=== PATIENT | female | born 1955 | race American Indian/Alaskan Native ===

== ENCOUNTER 2018-08-09 07:43 | Day surgery (SDC) | payer MEDICARE, OTHER ==
[~2018-08-09] VITALS: Ht 162.6 cm; Wt 85.3 kg
[~2018-08-09 07:43] MED LIST: ALBU90OI INH; ASPI325 PO; ATEN25 PO; BENZ100A PO; BUSP5 PO; CHLO25 PO; CHOL10002 PO; CYCL10 PO; DIPATR PO; HYDCHL12.5 PO; HYOS.125 SL; KETO10 PO; LISI20 PO; LISI5 PO; MULTI VITAMIN1 EACH PO; PARO20 PO; PRODEXEL PO; PROM25 PO; Prednisone20 MG PO; SERT100 PO; TIZA4 PO; Zanaflex2 M1 PO
--- NOTE | 2018-08-09 08:30 | NUR ---
PT ADMITTED TO [facility]. AGREES WITH PLANNED PROCEDURE. MEDS, ALLERGIES AND HX REVIEWED. LUNG SOUNDS CLEAR.
--- NOTE | 2018-08-09 08:55 | NUR ---
08/09/18 0855 Kaye Marinelli PATIENT DETERMINED TO BE ASA APPROPRIATE FOR PROPOFOL SEDATION PRIOR TO START OF PROCEDURE BY DR. FOWLER. 3-LEAD EKG REVIEWED WITH PHYSICIAN PRIOR TO START OF PROCEDURE. PATIENT CONFIRMS NPO STATUS AND AGREES WITH SCHEDULED PROCEDURE. History, Chart, Medications and Allergies reviewed before start of procedure. MONITOR INTACT WITH CONTINUOUS PULSE OXIMETRY AND INTERMITTENT BP. O2 VIA N/C INTACT THROUGHOUT SEDATION/PROCEDURE, 3L NC.
--- NOTE | 2018-08-09 09:39 | NUR ---
Discharge instructions reviewed with patient. Patient verbalizes understanding. Copy given to patient to take home. Discharged via wheelchair to private car for ride home. WILL CALL RX TO [facility]
== END 2018-08-09 22:38 | disposition home or self-care (01) ==
LOC: ORSCMMR 07:43 → ORD 08:30 → ORSCMMR 08:30
PROVIDERS: Internal Medicine Gastroenterology
PROC: 0DB58ZX Excision of Esophagus, Via Natural or Artificial Opening Endoscopic, Diagnostic (ICD-10-PCS; principal; 2018-08-09 08:30)
PROC: 0DB68ZX Excision of Stomach, Via Natural or Artificial Opening Endoscopic, Diagnostic (ICD-10-PCS; principal; 2018-08-09 08:30)
PROC: 0DB48ZX Excision of Esophagogastric Junction, Via Natural or Artificial Opening Endoscopic, Diagnostic (ICD-10-PCS; principal; 2018-08-09 08:30)
PROC: 0D758ZZ Dilation of Esophagus, Via Natural or Artificial Opening Endoscopic (ICD-10-PCS; principal; 2018-08-09 08:30)
DX: R13.14 Dysphagia, pharyngoesophageal phase (principal); K25.9 Gastric ulcer, unspecified as acute or chronic, without hemorrhage or perforation; K22.2 Esophageal obstruction; K44.9 Diaphragmatic hernia without obstruction or gangrene; F41.9 Anxiety disorder, unspecified; K21.0 Gastro-esophageal reflux disease with esophagitis; I10 Essential (primary) hypertension; Z87.891 Personal history of nicotine dependence; Z79.899 Other long term (current) drug therapy
CPT/HCPCS: 88305; 88312; 88342; C1726; J7120

== ENCOUNTER → 2018-11-30 | Outpatient (CLI) | payer MEDICARE, OTHER ==
[2018-11-30 14:16] LABS: Microalb/Creat Ratio UR, Rand Unable to Calculate mg/g (0.000-30.000); Microalbumin, Random Urine <5.000 mg/L (0.000-20.000)
== END ==
LOC: LAB 12:54 → LAB SHORT 12:54
PROVIDERS: Family Medicine
DX: E11.9 Type 2 diabetes mellitus without complications (principal)
CPT/HCPCS: 82043; 82570

== ENCOUNTER 2020-06-25 11:49 | Emergency (ER) | payer MEDICARE ==
[~2020-06-25] VITALS: Ht 162.6 cm; Wt 90.3 kg
[~2020-06-25 11:49] MED LIST changes: +OMEP20ER PO
== END 2020-06-25 12:22 | disposition home or self-care (01) ==
LOC: ER 11:49
DX: M72.2 Plantar fascial fibromatosis (principal); I10 Essential (primary) hypertension; E11.9 Type 2 diabetes mellitus without complications; J45.909 Unspecified asthma, uncomplicated; Z79.899 Other long term (current) drug therapy; Z88.5 Allergy status to narcotic agent
CPT/HCPCS: 99282

== ENCOUNTER → 2020-08-16 | Outpatient (CLI) | payer MEDICARE ==
[~2020-08-16] MED LIST changes: +CYCL10; +METO50ER; +NEURONTIN300 MG PO
[2020-08-16 19:27] LABS: Creatinine, Urine Random 64.4 mg/dL (27.00-270.00); Microalb/Creat Ratio UR, Rand 10.14 mg/g (0.000-30.000); Microalbumin, Random Urine 6.53 mg/L (0.000-20.000)
== END | disposition home or self-care (01) ==
LOC: LAB 13:13 → LAB SHORT 13:13
PROVIDERS: Family Medicine
DX: E11.9 Type 2 diabetes mellitus without complications (principal)
CPT/HCPCS: 82043; 82570

== ENCOUNTER → 2020-09-07 | Outpatient (CLI) | payer MEDICARE ==
[2020-09-11 15:09] LABS: HPV 16 Negative (Negative); HPV 18 Negative (Negative); HPV OTHER HR TYPES Negative (Negative)
== END | disposition home or self-care (01) ==
LOC: LAB 13:17 → LAB SHORT 13:17
PROVIDERS: Family Medicine
DX: Z12.4 Encounter for screening for malignant neoplasm of cervix (principal)
CPT/HCPCS: 87624; G0123

== ENCOUNTER 2021-01-20 15:08 | Emergency (ER) | payer MEDICARE, OTHER ==
[~2021-01-20] VITALS: Ht 162.6 cm; Wt 90.7 kg
[~2021-01-20 15:08] MED LIST changes: -CYCL10; -METO50ER; -NEURONTIN300 MG PO
[2021-01-20 15:35] LABS: BASOPHILS ABSOLUTE AUTO 0.05 K/mm3 (0.00-0.23); BASOPHILS PERCENT AUTO 1 % (0-2); EOSINOPHILS ABSOLUTE AUTO 0.17 K/mm3 (0.00-0.68); EOSINOPHILS PERCENT AUTO 3 % (0-6); Hematocrit 39.1 % (33.0-51.0); Hemoglobin 12.7 g/dL (11.5-16.0); IMMATURE GRAN ABSOLUTE AUTO 0.01 K/mm3 (0.00-0.10); IMMATURE GRAN PERCENT AUTO 0 % (0-1); LYMPHOCYTES ABSOLUTE AUTO 2.01 K/mm3 (0.84-5.20); LYMPHOCYTES PERCENT AUTO 40 % (21-46); MONOCYTES ABSOLUTE AUTO 0.51 K/mm3 (0.16-1.47); MONOCYTES PERCENT AUTO 10 % (4-13); Mean Corpuscular HGB 25.6 pg (26.0-34.0); Mean Corpuscular HGB Conc 32.5 g/dL (31.5-36.5); Mean Corpuscular Volume 79 fL (80-100); Mean Platelet Volume 9.4 fL (9.1-12.4); NEUTROPHILS ABSOLUTE AUTO 2.24 K/mm3 (1.96-9.15); NEUTROPHILS PERCENT AUTO 45 % (41-73); Platelet Count 364 K/mm3 (150-400); RDW Standard Deviation 40.1 fL (35.1-46.3); Red Blood Cell Count 4.97 M/mm3 (3.80-5.20); White Blood Cell Count 4.99 K/mm3 (4.00-11.30)
[2021-01-20 15:53] LABS: Alanine Aminotransfer (ALT/SGP 31 U/L (12-78); Albumin/Globulin Ratio 1.1 (0.8-1.8); Alk Phos 77 U/L (50-136); Anion Gap 7 mmol/L (6-16); Aspartate Aminotrans (AST/SGOT 22 U/L (12-37); Bilirubin, Total 0.6 mg/dL (0.1-1.0); Blood Urea Nitrogen 12 mg/dL (8-24); Bun/Creatinine Ratio 13.4 (12.0-20.0); CO2, Blood 24 mmol/L (21-32); Calcium, Blood 9.1 mg/dL (8.5-10.1); Chloride, Blood 106 mmol/L (98-108); Creatinine, Blood 0.89 mg/dL (0.40-1.00); Globulin, Blood 3.7 g/dL (2.2-4.0); Glomerular Filtration Rate >60 (60-); Glucose, Blood 109 mg/dL (70-99); Potassium, Blood 3.4 mmol/L (3.5-5.5); Sodium, Blood 137 mmol/L (136-145); Total Protein, Blood 7.7 g/dL (6.4-8.2); Troponin I <0.015 ng/mL (0.000-0.040)
[2021-01-20] MEDS ORDERED: METO50ER (16:59)
[2021-01-20] MEDS ORDERED: CYCL10 (16:59)
[2021-01-20] MEDS ORDERED: NEURONTIN300 MG PO (17:00)
== END 2021-01-20 18:18 | disposition home or self-care (01) ==
LOC: ER 15:08
PROVIDERS: Physician Assistant
DX: R07.89 Other chest pain (principal); R42 Dizziness and giddiness; Z88.5 Allergy status to narcotic agent; Z79.899 Other long term (current) drug therapy
CPT/HCPCS: 71046; 80053; 84484; 85025; 93005; 93010; 99284-25

== ENCOUNTER → 2021-05-13 | Outpatient (CLI) | payer MEDICARE, OTHER ==
[~2021-05-13] MED LIST changes: +CYCL10; +METO50ER; +NEURONTIN300 MG PO
== END | disposition home or self-care (01) ==
LOC: LAB 15:06 → LAB SHORT 15:06
DX: M54.9 Dorsalgia, unspecified (principal)
CPT/HCPCS: 87086

== ENCOUNTER → 2022-04-01 | Outpatient (CLI) | payer MEDICARE, OTHER ==
[2022-04-01 19:16] LABS: Creatinine, Urine Random 48.4 mg/dL (27.00-270.00); Microalb/Creat Ratio UR, Rand 14.029 mg/g (0.000-30.000); Microalbumin, Random Urine 6.79 mg/L (0.000-20.000)
== END | disposition home or self-care (01) ==
LOC: LAB SHORT 10:00
PROVIDERS: Family Medicine
DX: Z51.81 Encounter for therapeutic drug level monitoring (principal); Z79.899 Other long term (current) drug therapy
CPT/HCPCS: 82043; 82570

== ENCOUNTER 2022-05-16 16:27 | Emergency (ER) | payer MEDICARE, OTHER ==
[~2022-05-16] VITALS: Ht 162.6 cm; Wt 83.5 kg
[2022-05-16 18:16] LABS: BASOPHILS ABSOLUTE AUTO 0.07 K/mm3 (0.00-0.23); BASOPHILS PERCENT AUTO 1 % (0-2); EOSINOPHILS ABSOLUTE AUTO 0.18 K/mm3 (0.00-0.68); EOSINOPHILS PERCENT AUTO 2 % (0-6); Hematocrit 40.1 % (33.0-51.0); IMMATURE GRAN ABSOLUTE AUTO 0.02 K/mm3 (0.00-0.10); IMMATURE GRAN PERCENT AUTO 0 % (0-1); LYMPHOCYTES ABSOLUTE AUTO 1.73 K/mm3 (0.84-5.20); LYMPHOCYTES PERCENT AUTO 23 % (21-46); MONOCYTES ABSOLUTE AUTO 0.77 K/mm3 (0.16-1.47); MONOCYTES PERCENT AUTO 10 % (4-13); Mean Corpuscular HGB 25.8 pg (26.0-34.0); Mean Corpuscular HGB Conc 32.4 g/dL (31.5-36.5); Mean Corpuscular Volume 80 fL (80-100); Mean Platelet Volume 9.2 fL (9.1-12.4); NEUTROPHILS ABSOLUTE AUTO 4.72 K/mm3 (1.96-9.15); NEUTROPHILS PERCENT AUTO 63 % (41-73); Platelet Count 331 K/mm3 (150-400); RDW Standard Deviation 40.8 fL (35.1-46.3); Red Blood Cell Count 5.03 M/mm3 (3.80-5.20); White Blood Cell Count 7.49 K/mm3 (4.00-11.30)
[2022-05-16 18:33] LABS: Albumin, Blood 4.2 g/dL (3.4-5.0); Albumin/Globulin Ratio 1.2 (0.8-1.8); Bilirubin, Total 0.4 mg/dL (0.1-1.0); Bun/Creatinine Ratio 19.1 (12.0-20.0); Calcium, Blood 9.6 mg/dL (8.5-10.1); Creatinine, Blood 1.1 mg/dL (0.40-1.00); Globulin, Blood 3.6 g/dL (2.2-4.0); Potassium, Blood 4.3 mmol/L (3.5-5.5); Total Protein, Blood 7.8 g/dL (6.4-8.2)
== END 2022-05-16 18:40 | disposition left against medical advice (07) ==
LOC: ER 16:27
PROVIDERS: Physician Assistant
DX: R55 Syncope and collapse (principal); Z79.899 Other long term (current) drug therapy; Z53.21 Procedure and treatment not carried out due to patient leaving prior to being seen by health care provider
CPT/HCPCS: 36415; 70450; 80053; 82947; 85025; 93005; 93010; 99283-25

== ENCOUNTER 2023-01-31 13:12 | Emergency (ER) | payer MEDICARE, OTHER ==
[~2023-01-31] VITALS: Ht 165.1 cm; Wt 90.7 kg
[2023-01-31 13:40] VITALS: BP 119/78
== END 2023-01-31 15:33 | disposition home or self-care (01) ==
LOC: ER 13:12
DX: M79.605 Pain in left leg (principal); I10 Essential (primary) hypertension; E11.9 Type 2 diabetes mellitus without complications; Z88.5 Allergy status to narcotic agent; Z79.899 Other long term (current) drug therapy
CPT/HCPCS: 93971; 99283-25

== ENCOUNTER → 2023-09-08 | Outpatient (CLI) | payer MEDICARE, OTHER | LOC: LAB 13:35 → LAB SHORT 13:35 | DX: N39.0 Urinary tract infection, site not specified (principal) | CPT/HCPCS: 87077; 87086; 87186 ==

== ENCOUNTER 2023-09-22 12:32 | Emergency (ER) | payer MEDICARE, OTHER ==
[~2023-09-22] VITALS: Ht 165.1 cm; Wt 88.5 kg
[2023-09-22 13:00] VITALS: BP 108/92
[2023-09-22 13:47] LABS: BASOPHILS ABSOLUTE AUTO 0.06 K/mm3 (0.00-0.23); BASOPHILS PERCENT AUTO 1 % (0-2); EOSINOPHILS ABSOLUTE AUTO 0.12 K/mm3 (0.00-0.68); EOSINOPHILS PERCENT AUTO 2 % (0-6); Hematocrit 44.6 % (33.0-51.0); Hemoglobin 14.3 g/dL (11.5-16.0); IMMATURE GRAN ABSOLUTE AUTO 0.03 K/mm3 (0.00-0.10); IMMATURE GRAN PERCENT AUTO 0 % (0-1); LYMPHOCYTES ABSOLUTE AUTO 1.71 K/mm3 (0.84-5.20); LYMPHOCYTES PERCENT AUTO 24 % (21-46); MONOCYTES ABSOLUTE AUTO 0.59 K/mm3 (0.16-1.47); MONOCYTES PERCENT AUTO 8 % (4-13); Mean Corpuscular HGB 27.1 pg (26.0-34.0); Mean Corpuscular HGB Conc 32.1 g/dL (31.5-36.5); Mean Corpuscular Volume 85 fL (80-100); Mean Platelet Volume 9.7 fL (9.1-12.4); NEUTROPHILS ABSOLUTE AUTO 4.53 K/mm3 (1.96-9.15); NEUTROPHILS PERCENT AUTO 64 % (41-73); Platelet Count 369 K/mm3 (150-400); RDW Coefficient Variation 13.8 % (11.7-14.2); RDW Standard Deviation 42.7 fL (35.1-46.3); Red Blood Cell Count 5.28 M/mm3 (3.80-5.20); White Blood Cell Count 7.04 K/mm3 (4.00-11.30)
[2023-09-22 14:17] LABS: Albumin, Blood 3.7 g/dL (3.4-5.0); Albumin/Globulin Ratio 1.1 (0.8-1.8); Bilirubin, Total 0.3 mg/dL (0.1-1.0); Bun/Creatinine Ratio 17.6 (12.0-20.0); Calcium, Blood 9.3 mg/dL (8.5-10.1); Creatinine, Blood 1.02 mg/dL (0.40-1.00); Globulin, Blood 3.4 g/dL (2.2-4.0); Potassium, Blood 4.4 mmol/L (3.5-5.5); Total Protein, Blood 7.1 g/dL (6.4-8.2)
== END 2023-09-22 14:48 | disposition left against medical advice (07) ==
LOC: ER 12:32
PROVIDERS: Emergency Medicine
DX: R55 Syncope and collapse (principal); R11.0 Nausea; Z53.21 Procedure and treatment not carried out due to patient leaving prior to being seen by health care provider
CPT/HCPCS: 80053; 84484; 85025; 93005; 93010; 99282-25

== ENCOUNTER 2023-11-23 10:45 | Observation (INO) | payer MEDICARE ==
[~2023-11-23] VITALS: Ht 167.6 cm; Wt 81.0 kg
[2023-11-23 11:21] LABS: BASOPHILS ABSOLUTE AUTO 0.05 K/mm3 (0.00-0.23); BASOPHILS PERCENT AUTO 1 % (0-2); EOSINOPHILS ABSOLUTE AUTO 0.15 K/mm3 (0.00-0.68); EOSINOPHILS PERCENT AUTO 3 % (0-6); Hematocrit 40.8 % (33.0-51.0); Hemoglobin 12.9 g/dL (11.5-16.0); IMMATURE GRAN ABSOLUTE AUTO 0.01 K/mm3 (0.00-0.10); IMMATURE GRAN PERCENT AUTO 0 % (0-1); LYMPHOCYTES ABSOLUTE AUTO 1.63 K/mm3 (0.84-5.20); LYMPHOCYTES PERCENT AUTO 30 % (21-46); MONOCYTES PERCENT AUTO 9 % (4-13); Mean Corpuscular HGB 26.8 pg (26.0-34.0); Mean Corpuscular HGB Conc 31.6 g/dL (31.5-36.5); Mean Corpuscular Volume 85 fL (80-100); NEUTROPHILS ABSOLUTE AUTO 3.06 K/mm3 (1.96-9.15); NEUTROPHILS PERCENT AUTO 57 % (41-73); Platelet Count 352 K/mm3 (150-400); RDW Coefficient Variation 13.7 % (11.7-14.2); RDW Standard Deviation 42.6 fL (35.1-46.3); Red Blood Cell Count 4.81 M/mm3 (3.80-5.20)
[2023-11-23 11:46] LABS: Albumin, Blood 3.5 g/dL (3.4-5.0); Albumin/Globulin Ratio 1.2 (0.8-1.8); Bilirubin, Total 0.5 mg/dL (0.1-1.0); Calcium, Blood 8.9 mg/dL (8.5-10.1); Creatinine, Blood 0.93 mg/dL (0.40-1.00); Globulin, Blood 2.9 g/dL (2.2-4.0); Potassium, Blood 4.1 mmol/L (3.5-5.5); Total Protein, Blood 6.4 g/dL (6.4-8.2)
[2023-11-23] MEDS ORDERED: BUPR150ER PO (12:25)
[2023-11-23] MEDS ORDERED: Vitamin D1000 UNI1 PO (12:26)
[2023-11-23] MEDS ORDERED: METO25ER PO (12:26)
[2023-11-23] MEDS ORDERED: Buspirone HCl15 MG PO (12:26)
[2023-11-23] MEDS ORDERED: Prinivil10 MG PO (12:26)
[2023-11-23] MEDS ORDERED: GABA300 PO (12:26)
[2023-11-23] MEDS ORDERED: Acetaminophen 325 MG TABLET PO PRN (14:50)
[2023-11-23] MEDS ORDERED: Nitroglycerin 0.4 MG SUBL SL PRN (14:50)
[2023-11-23] MEDS ORDERED: Ondansetron HCl 2 MG / ML 2ML Vial IV PRN (14:50)
[2023-11-23] MEDS ORDERED: Atropine Sulfate 0.1 MG/ML 10ML SYR IV PRN (14:50)
--- NOTE | 2023-11-23 15:26 | NUR ---
ADMIT: Patient arrives to PCU via gurney and is able to ambulate to the bed independently. She is alert and oriented x4, she is forgetful. She deneis chest pain or SOB at this time. HRR, she is SB in the 30s-40s. LS CTA, biox is WNL on RA. BT+, pt states she has frequent heart burn at home. PPP. When changing into her gown a bunch of loose pills fell out of her pocket, these pills were placed into a specimen cup and locked in her medication drawer. Medications were reconciled with the patient, and confirmed via her prescription fill history. Patient states she started to have shortness of breath, dizziness, and chest pain for the last week, she attributes this to her decrease in dosing of her Metoprolol. She states she knows that she is supposed to be taking 25mg of Metoprolol but she took 50 mg this morning. She states she checks her blood pressure multiple times daily and it varies. She is oriented to the room and call light. She is able to ambulate to the bathroom independently with a steady gait, pt is encouraged to call so that staff knows she is getting up in case she has pain or dizziness while here.
[2023-11-23 16:06] VITALS: BP 132/81
[2023-11-23] MEDS ORDERED: buPROPion HCL 150 MG TAB.SR.12H PO SCH (17:00)
[2023-11-23 19:30] VITALS: BP 137/91
[2023-11-23] MEDS ORDERED: BusPIRone HCl 10 MG Tab PO SCH ×2 (20:00→21:00)
--- NOTE | 2023-11-23 20:08 | NUR ---
ASSUMPTION OF CARE NOTE: ASSUMED CARE OF PT AT 1900 AFTER REPORT DROM DAY SHIFT RN. UPON INITIAL ASSESSMENT, PT APPEARS ANXIOUS WITH RAPID SPEECHA ND ASKING WHEN SHE CAN GET HER ANXIETY MEDICATIONS. SHE REPORTS SHE HAS ANXIETY ATTACKS AND HAS BEEN HAVING ONE FOR THE LAST HOUR AND A HALF. SHE IS AXO X 4 WITH NO NEURO DEFICITS. HER ADMITTING DX IS BRADYCARDIA IN WHICH SHE IS CURRENTLY AT 40-50BPM SINUS, ASYMPTOMATIC. DENIES C/P OR SOB. LUNG SOUNDS CLEAR, 100% RA. DENIES ANY N/V/D. NON DIABETIC PER PT BUT REPORTS "HER BLOOD SUGARS CAN GET HIGH". SHE STATES SHE RECENTLY LOST 40LBS WITH DIET AND EXERCISE. WHEN ATTEMPTING TO FLUSH IV PT STATED "IM NOT GOING TO LET YOU PUT AIR IN THERE" EDUCATED PT THAT I WOULD BE FLUSHING IV WITH FLUIDS AND NOT AIR. PT ALLOWED ME TO FLUSH IV. PT ALSO STATED THAT BLOOD PRESSURE CUFF WAS EXTREMLY PAINFUL AND WHEN TRYING TO EDUCATE PT ON THE TIGHTNESS SHE STATED TO "JUST SHUT UP AND LET ME TALK". THIS RN WAS SILENT AND ALLOWED PT TO EXPRESS HER DISCOMFORT. VSS AT THIS TIME, PT PROVIDED WITH WATER AND DENIES ANY CURRENT NEEDS.
[2023-11-23 23:50] VITALS: BP 116/64
--- NOTE | 2023-11-24 00:29 | NUR ---
PT TORSTEN DOWN TO 38BPM. ASYMPTOMATIC. WILL MONITOR
--- NOTE | 2023-11-24 02:16 | NUR ---
PT REPORTS CHEST PAIN AND DESCRIBES IT "PAIN IN HER ARTERIES". REFUSED PRN TYLENOL. PT STATES PAIN COMES AND GOES AND IS CURRENLTLY NOT BOTHERING HER. ADVISED WE WOULD CONTINUE TO MONITOR AND COULD CALL THE MD IF NEEDED.
[2023-11-24 03:56] VITALS: BP 155/80
--- NOTE | 2023-11-24 06:03 | NUR ---
PCU WAITER/WAITRESS CLUB SUMMARY: THROUGHOUT THE NIGHT, PT HAD NO ACUTE CHNAGES IN CONDITION AND REMAINED STABLE. SHE HAD ONE BOUGHT OF C/P THAT LASTED ABOUT 5 MINUTES RELIEVED W/O INTERVENTIONS. HR SUSTAINED 36-50BPM. SHE DID NOT SLEEP THROUHGOUT THE NIGHT BUT STATES THAT THIS IS NORMAL FOR HER. SHE HAS ANXIETY AND WAS TREATED FOR THIS AT THE BEGINNING OF THE NIGHT AND REPORTED NO INCREASE IN ANXIETY AFTER TX. ALL VSS, WILL CONTINUE TO PROVIDE CARE ORDERED AND REQUESTED UNTIL REPORT TO DAY SHIFT RN.
[2023-11-24 06:53] VITALS: BP 139/92
--- NOTE | 2023-11-24 07:30 | NUR ---
Recieved in room report with alot of participation from patient with hx. She is mostly alert and oriented and is able to communicate her needs. She MAEW. She is on RA and sats >90%. She has 20ga IV in [facility] and is WNL's and is SL'D. VS Stable. She denies any current chest pain. No documented plans for today and will await rounding.
[2023-11-24] MEDS ORDERED: Enoxaparin 40 MG/0.4 ML SYR SC SCH (09:00)
[2023-11-24] MEDS ORDERED: Lisinopril 10 MG Tab PO SCH (10:00)
--- NOTE | 2023-11-24 10:15 | NUR ---
Educated patient about going AMA. Called Dr Salas and notified PCU 2 going AMA, she stated she is rounding if patient wants to wait. I noptified patient of Dr varner and she stated she was fine with leaving. I educated her on not taking any meds and doses not prescribed until meeting with her PCP. I gave her PCU number and told her to call when home. IV pulled intact and wrapped with gauze and coban. Patient gathered her belongings, all her meds returned and she ambulated to exit.
== END 2023-11-24 10:04 | disposition left against medical advice (07) ==
LOC: ER 10:45 → PCU 10:46
PROVIDERS: Emergency Medicine; ADMIT Internal Medicine
DX: R00.1 Bradycardia, unspecified (principal); T44.7X5A Adverse effect of beta-adrenoreceptor antagonists, initial encounter; R07.89 Other chest pain; I10 Essential (primary) hypertension; F32.A Depression, unspecified; F41.9 Anxiety disorder, unspecified; E11.9 Type 2 diabetes mellitus without complications; J45.909 Unspecified asthma, uncomplicated; Z88.5 Allergy status to narcotic agent; Z79.899 Other long term (current) drug therapy
CPT/HCPCS: 71045; 80053; 83880; 84443; 84484; 85025; 93005; 93010; 96372; 99285-25; A9270; G0378; J1650

== ENCOUNTER → 2024-03-30 | Outpatient (CLI) | payer MEDICARE, OTHER ==
[~2024-03-30] MED LIST changes: +BUPR150ER PO; +Buspirone HCl15 MG PO; +GABA300 PO; +METO25ER PO; +Prinivil10 MG PO; +Vitamin D1000 UNI1 PO
[2024-03-30 17:45] LABS: BASOPHILS ABSOLUTE AUTO 0.07 K/mm3 (0.00-0.23); BASOPHILS PERCENT AUTO 2 % (0-2); EOSINOPHILS ABSOLUTE AUTO 0.17 K/mm3 (0.00-0.68); EOSINOPHILS PERCENT AUTO 4 % (0-6); Hematocrit 40.3 % (33.0-51.0); IMMATURE GRAN ABSOLUTE AUTO 0.01 K/mm3 (0.00-0.10); IMMATURE GRAN PERCENT AUTO 0 % (0-1); LYMPHOCYTES ABSOLUTE AUTO 1.66 K/mm3 (0.84-5.20); LYMPHOCYTES PERCENT AUTO 40 % (21-46); MONOCYTES ABSOLUTE AUTO 0.44 K/mm3 (0.16-1.47); MONOCYTES PERCENT AUTO 11 % (4-13); Mean Corpuscular HGB 26.3 pg (26.0-34.0); Mean Corpuscular HGB Conc 32.3 g/dL (31.5-36.5); Mean Corpuscular Volume 82 fL (80-100); Mean Platelet Volume 9.6 fL (9.1-12.4); NEUTROPHILS ABSOLUTE AUTO 1.83 K/mm3 (1.96-9.15); NEUTROPHILS PERCENT AUTO 44 % (41-73); Platelet Count 403 K/mm3 (150-400); RDW Coefficient Variation 13.8 % (11.7-14.2); RDW Standard Deviation 41.1 fL (35.1-46.3); Red Blood Cell Count 4.94 M/mm3 (3.80-5.20); White Blood Cell Count 4.18 K/mm3 (4.00-11.30)
[2024-03-30 18:33] LABS: Alanine Aminotransfer (ALT/SGP 28 U/L (12-78); Albumin, Blood 3.9 g/dL (3.4-5.0); Albumin/Globulin Ratio 1.1 (0.8-1.8); Alk Phos 72 U/L (50-136); Anion Gap 8 mmol/L (3-11); Aspartate Aminotrans (AST/SGOT 21 U/L (12-37); Bilirubin, Total 0.6 mg/dL (0.1-1.0); Blood Urea Nitrogen 16 mg/dL (8-24); CO2, Blood 27 mmol/L (21-32); Calcium, Blood 9.3 mg/dL (8.5-10.1); Chloride, Blood 108 mmol/L (98-108); Cholesterol 240 mg/dL (50-200); Creatinine, Blood 0.84 mg/dL (0.40-1.00); Globulin, Blood 3.6 g/dL (2.2-4.0); Glomerular Filtration Rate 76 (60-); Glucose, Blood 101 mg/dL (70-99); HDL Cholesterol 121 mg/dL (>39); LDL/HDL RATIO 0.9; Low Density Lipoprotein Chol 107 mg/dL (0-110); Potassium, Blood 3.9 mmol/L (3.5-5.5); Sodium, Blood 139 mmol/L (136-145); Total Protein, Blood 7.5 g/dL (6.4-8.2); Triglycerides 60 mg/dL (30-160); Very Low Density Lipoprot Chol 12 mg/dL (6-32)
== END ==
LOC: LAB SHORT 16:22 → LAB 16:22
PROVIDERS: Family Medicine
DX: Z51.81 Encounter for therapeutic drug level monitoring (principal); Z79.899 Other long term (current) drug therapy
CPT/HCPCS: 80053; 80061; 82306; 83036; 84443; 85025

== ENCOUNTER 2024-06-04 15:39 | Emergency (ER) | payer MEDICARE, OTHER ==
[~2024-06-04] VITALS: Ht 165.1 cm; Wt 72.6 kg
[2024-06-04 16:41] VITALS: BP 115/75
== END 2024-06-04 17:10 | disposition home or self-care (01) ==
LOC: ER 15:39
DX: R55 Syncope and collapse (principal); I10 Essential (primary) hypertension; E11.9 Type 2 diabetes mellitus without complications; J45.909 Unspecified asthma, uncomplicated; Z79.899 Other long term (current) drug therapy; Z88.5 Allergy status to narcotic agent
CPT/HCPCS: 99283